=== PATIENT | male | born 1990 | race Native Hawaiian/Other Pacific Islander ===

== ENCOUNTER 2019-07-16 20:21 | Emergency (ER) | payer OTHER ==
[~2019-07-16] VITALS: Ht 177.8 cm; Wt 82.6 kg
[2019-07-16 20:34] VITALS: TEMP 99.6
[2019-07-16 21:05] LABS: PLATELET COUNT 117 K/uL (142-355)
[2019-07-16 21:09] LABS: POTASSIUM 3.7 mmol/L (3.6-5.2)
[2019-07-16 21:45] VITALS: BP 133/80
== END 2019-07-16 21:45 | disposition home or self-care (01) ==
LOC: ED 20:21
PROVIDERS: Family Medicine
DX: K58.9 Irritable bowel syndrome, unspecified (principal); K21.9 Gastro-esophageal reflux disease without esophagitis
CPT/HCPCS: 36415; 80053; 81000; 82150; 83690; 85027; 99283